=== PATIENT | male | born 1995 | race Caucasian/White ===

== ENCOUNTER 2019-12-23 08:28 | Emergency (ER) | payer OTHER ==
[~2019-12-23] VITALS: Ht 170.2 cm; Wt 67.6 kg
[2019-12-23 08:41] VITALS: Ht 170.2 cm; Wt 67.6 kg
[2019-12-23 09:31] VITALS: BP 132/86
== END 2019-12-23 09:31 | disposition home or self-care (01) ==
LOC: ED 08:28
DX: S81.011A Laceration without foreign body, right knee, initial encounter (principal); W26.0XXA Contact with knife, initial encounter; Y93.89 Activity, other specified; Y92.89 Other specified places as the place of occurrence of the external cause; Y99.0 Civilian activity done for income or pay
CPT/HCPCS: 90715; J2001

== ENCOUNTER 2019-12-25 10:57 | Emergency (ER) | payer OTHER ==
[~2019-12-25] VITALS: Ht 170.2 cm; Wt 67.1 kg
[2019-12-25 11:05] VITALS: BP 122/79; Ht 170.2 cm; Wt 67.1 kg
== END 2019-12-25 11:45 | disposition home or self-care (01) ==
LOC: ED 10:57
DX: S81.811D Laceration without foreign body, right lower leg, subsequent encounter (principal); X58.XXXD Exposure to other specified factors, subsequent encounter